=== PATIENT | female | born 1950 | race Caucasian/White ===

== ENCOUNTER 2021-05-20 16:05 | Emergency (ER) | payer MEDICARE, MEDICAID ==
[~2021-05-20] VITALS: Ht 167.6 cm; Wt 70.0 kg
[2021-05-20 16:13] VITALS: BP 162/64
[2021-05-20] MEDS ORDERED: ACETAMINOPHEN 325MG TABLET PO ONE (17:45)
== END 2021-05-20 19:39 | disposition home or self-care (01) ==
LOC: ER 16:05
DX: M54.2 Cervicalgia (principal); M25.572 Pain in left ankle and joints of left foot; M25.511 Pain in right shoulder; E11.9 Type 2 diabetes mellitus without complications; E78.00 Pure hypercholesterolemia, unspecified; I10 Essential (primary) hypertension; V49.9XXA Car occupant (driver) (passenger) injured in unspecified traffic accident, initial encounter; Y93.89 Activity, other specified; Y92.410 Unspecified street and highway as the place of occurrence of the external cause
CPT/HCPCS: 71045; 73030; 73610; 99284